=== PATIENT | male | born 1945 | race Asian ===

== ENCOUNTER 2024-09-06 11:41 | Emergency (ER) | payer MEDICAID ==
[~2024-09-06] VITALS: Ht 162.6 cm; Wt 74.8 kg
[2024-09-06] MEDS ORDERED: DIATR MEGLU/DIATRIZOATE SODIUM 30 ML BOTTLE (GASTROGRAPHIN) ONE (13:02)
[2024-09-06 19:54] VITALS: BP 118/64; TEMP 97.8; O2SAT 100
== END 2024-09-06 19:54 ==
LOC: ER 11:45
DX: K94.23 Gastrostomy malfunction (principal); R06.02 Shortness of breath
CPT/HCPCS: 99285; 43762; 74018; 31720; 94799 ×2; Q9963; 94002-TC

== ENCOUNTER 2024-10-24 15:43 | Inpatient (IN) | payer MEDICAID ==
[~2024-10-24] VITALS: Ht 165.1 cm; Wt 47.6 kg
[2024-10-24] MEDS: PANTOPRAZOLE 80 MG in IV NS 0.9% 100 ML IV ONE (16:10)
[2024-10-24] MEDS: CEFEPIME 1 GM in IV D5W 50 ML IV ONE (16:10)
[2024-10-24] MEDS: IV NS 0.9% 1,000 ML BAG IV ONE (16:10)
[2024-10-24 16:23] LABS: BASOPHILS % (AUTO) 0.4 % (0.0-2.0); EOSINOPHILS # (AUTO) 0.8 K/uL (0.0-0.7); HEMATOCRIT 24 % (39-51); HEMOGLOBIN 7.6 g/dL (13.5-17.5); LYMPHOCYTES # (AUTO) 1.6 K/uL (0.8-4.8); LYMPHOCYTES % (AUTO) 15.9 % (20.0-44.0); MEAN CORPUSCULAR HEMOGLOBIN 28 PG (26.0-33.0); MEAN CORPUSCULAR HGB CONC 31 g/dl (31.0-36.0); MEAN CORPUSCULAR VOLUME 89 fL (80-96); MONOCYTES # (AUTO) 0.6 K/uL (0.1-1.30); MONOCYTES % (AUTO) 5.6 % (2.0-12.0); NEUTROPHILS # (AUTO) 7.3 K/uL (1.8-8.9); NEUTROPHILS % (AUTO) 70.1 % (43.0-81.0); PLATELET COUNT (AUTO) 597 K/uL (150-450); RED BLOOD CELL COUNT(AUTO) 2.73 MIL/uL (4.5-6.0); RED CELL DISTRIBUTION WIDTH 20.1 % (11.5-15.0); WHITE BLOOD COUNT (AUTO) 10.4 K/uL (4.3-11.0)
[2024-10-24] MEDS ORDERED: MAGNESIUM HYDROXIDE 30 ML UDC PO PRN (16:30)
[2024-10-24] MEDS ORDERED: Z GUARD REMEDY 4 OZ OINT TP PRN (16:30)
[2024-10-24] MEDS ORDERED: ONDANSETRON HCL/PF 4 MG/2 ML VIAL IVP PRN (16:30)
[2024-10-24] MEDS: PANTOPRAZOLE 80 MG in IV NS 0.9% 500 ML IV ONE (16:30)
[2024-10-24] MEDS ORDERED: MAG HYDROX/AL HYDROX/SIMETH 30 ML UDC PO PRN (16:30)
[2024-10-24 16:47] LABS: LACTIC ACID 1.7 mmol/L (0.4-2.0)
[2024-10-24 16:49] LABS: INR 1.15 (0.91-1.10); PARTIAL THROMBOPLASTIN TIME 46.4 SEC (24.3-34.3); PROTHROMBIN TIME 12.1 SECS (9.2-11.1)
[2024-10-24] MEDS ORDERED: TAMS-12 GT (17:07)
[2024-10-24] MEDS ORDERED: SODI100037 GT (17:07)
[2024-10-24] MEDS ORDERED: CHLO473M5 MM (17:07)
[2024-10-24] MEDS ORDERED: POVI3780 TP (17:07)
[2024-10-24] MEDS ORDERED: FERR220S2 GT (17:07)
[2024-10-24] MEDS ORDERED: MAGN400O6 GT (17:07)
[2024-10-24] MEDS ORDERED: MULT1CAP44 GT (17:07)
[2024-10-24] MEDS ORDERED: COLLAGEN POWDER TP (17:07)
[2024-10-24] MEDS ORDERED: ACET160L44 GT (17:07)
[2024-10-24] MEDS ORDERED: METO-295 GT (17:07)
[2024-10-24] MEDS ORDERED: TRAM50TA2 PO (17:07)
[2024-10-24] MEDS ORDERED: LACT250L14 GT (17:07)
[2024-10-24] MEDS ORDERED: PANT40TA49 GT (17:07)
[2024-10-24] MEDS ORDERED: COLL30OI TP (17:07)
[2024-10-24] MEDS ORDERED: NA P133E RC (17:07)
[2024-10-24] MEDS ORDERED: NORM10004 IV (17:07)
[2024-10-24] MEDS ORDERED: ASCO-352 GT (17:07)
[2024-10-24] MEDS ORDERED: ALBU2.5V38 IH ×2 (17:07)
[2024-10-24] MEDS ORDERED: ONDA4TAB5 GT (17:07)
[2024-10-24] MEDS ORDERED: CRAN3875 GT (17:07)
[2024-10-24] MEDS ORDERED: METO25TA6 GT (17:07)
[2024-10-24] MEDS ORDERED: AMIN30LI66 GT (17:07)
[2024-10-24] MEDS ORDERED: LEVO125T8 GT (17:07)
[2024-10-24] MEDS ORDERED: BISA10SU11 RC (17:07)
[2024-10-24] MEDS ORDERED: ACET-2070 GT (17:07)
[2024-10-24] MEDS ORDERED: SENN-291 GT (17:07)
[2024-10-24] MEDS ORDERED: RIVA10TA GT (17:07)
[2024-10-24] MEDS ORDERED: DOCU100T2 GT (17:07)
[2024-10-24 17:11] LABS: ALANINE AMINOTRANSFERASE 40 U/L (12-78); ALBUMIN 1.7 g/dL (3.4-5.0); ALKALINE PHOSPHATASE 177 U/L (46-116); ASPARTATE AMINOTRANSFERASE 38 U/L (15-37); BILIRUBIN,DIRECT 0.1 mg/dL (0.0-0.2); BILIRUBIN,TOTAL 0.2 mg/dL (0.2-1.0); CALCIUM, SERUM 8.4 mg/dL (8.5-10.1); CARBON DIOXIDE 23 mmol/L (21-32); CHLORIDE 99 mmol/L (98-107); CREATININE 0.4 mg/dL (0.6-1.3); GLUCOSE 96 mg/dL (74-106); POTASSIUM 4.1 mmol/L (3.5-5.1); SODIUM SERUM 131 mmol/L (136-145); TOTAL PROTEIN, SERUM 7.2 g/dL (6.4-8.2); UREA NITROGEN, BLOOD 18 mg/dL (7-18)
[2024-10-24 18:18] LABS: APPEARANCE,URINE CLOUDY (CLEAR); BILIRUBIN,URINE NEGATIVE (NEGATIVE); BLOOD, URINE 1+ Ery/uL (NEGATIVE); COLOR,URINE YELLOW (YELLOW); KETONES,URINE NEGATIVE (NEGATIVE); LEUKOCYTE ESTERASE ,URINE 3+ (NEGATIVE); NITRITE, URINE POSITIVE (NEGATIVE); PH,URINE 8.5 (5.0-8.0); PROTEIN,URINE TRACE mg/dl (NEGATIVE); UGLUCOSE NEGATIVE (NEGATIVE); UROBILINOGEN,URINE 0.2 EU/dL (0.2)
[2024-10-24 18:48] LABS: WBC,URINE 51-80 /HPF (0-3)
[2024-10-24 18:49] LABS: ADD URINE CULTURE YES; BACTERIA,URINE 2+ /HPF (None Seen); TRIPLE PHOSPHATE CRYSTAL,UR Many /HPF (None Seen); URINE AMORPHOUS PHOSPHATES Moderate /HPF (None Seen)
[2024-10-24 18:54] LABS: ANISOCYTOSIS 1+; EOSINOPHILS % (MANUAL) 9 % (0-4); LYMPHOCYTES % (MANUAL) 12 % (16-48); MONOCYTES % (MANUAL) 5 % (0-11.0); NEUTROPHILS % (MANUAL) 74 (42-76); PLATELET ESTIMATE INCREASED
[2024-10-24] MEDS: SOD FERRIC GLUC 125 MG in IV NS 0.9% 100 ML IV SCH (20:10)
[2024-10-24 22:00] VITALS: BP 105/74; TEMP 99; O2SAT 98
[2024-10-24 23:03] LABS: HEMOGLOBIN 7.9 g/dL (13.5-17.5)
[2024-10-25] MEDS: IV NS 0.9% 1,000 ML IV PRN (01:08)
[2024-10-25 06:26] LABS: BASOPHILS % (AUTO) 0.2 % (0.0-2.0); EOSINOPHILS # (AUTO) 0.5 K/uL (0.0-0.7); EOSINOPHILS % (AUTO) 5.5 % (0.0-6.0); HEMATOCRIT 23 % (39-51); HEMOGLOBIN 7.2 g/dL (13.5-17.5); LYMPHOCYTES % (AUTO) 10.3 % (20.0-44.0); MEAN CORPUSCULAR HEMOGLOBIN 28 PG (26.0-33.0); MEAN CORPUSCULAR HGB CONC 31 g/dl (31.0-36.0); MEAN CORPUSCULAR VOLUME 91 fL (80-96); MONOCYTES # (AUTO) 0.5 K/uL (0.1-1.30); MONOCYTES % (AUTO) 5.2 % (2.0-12.0); NEUTROPHILS # (AUTO) 7.3 K/uL (1.8-8.9); NEUTROPHILS % (AUTO) 78.8 % (43.0-81.0); PLATELET COUNT (AUTO) 564 K/uL (150-450); RED BLOOD CELL COUNT(AUTO) 2.53 MIL/uL (4.5-6.0); RED CELL DISTRIBUTION WIDTH 20.1 % (11.5-15.0); WHITE BLOOD COUNT (AUTO) 9.3 K/uL (4.3-11.0)
[2024-10-25 07:16] LABS: ALBUMIN 1.7 g/dL (3.4-5.0); BILIRUBIN,TOTAL 0.4 mg/dL (0.2-1.0); CALCIUM, SERUM 8.4 mg/dL (8.5-10.1); CREATININE 0.5 mg/dL (0.6-1.3); MAGNESIUM 1.9 mg/dL (1.8-2.4); PHOSPHORUS 3.7 mg/dL (2.5-4.9); POTASSIUM 3.6 mmol/L (3.5-5.1)
[2024-10-25 08:00] VITALS: BP 113/62; TEMP 98.2; O2SAT 99
[2024-10-25] MEDS: PANTOPRAZOLE 40 MG VIAL IV SCH (08:18)
[2024-10-25] MEDS: DAKINS QUARTER STRENGTH (0.125%) 480 ML BOTTLE TOP SCH (09:48)
[2024-10-25] MEDS: THERAHONEY GEL 1.5 OZ TUBE TP SCH (09:48)
[2024-10-25 12:00] VITALS: BP 103/57; TEMP 98.4; O2SAT 99
[2024-10-25] MEDS ORDERED: JEVITY 1.5 CAL LIQUID 1,000 ML BOTTLE GT PRN ×2 (15:00)
[2024-10-25] MEDS ORDERED: ALBUTEROL FS 2.5 MG/3 ML VIAL.NEB NEB PRN (15:00)
[2024-10-25] MEDS ORDERED: METOCLOPRAMIDE HCL 10 MG TABLET GT PRN (15:00)
[2024-10-25 16:00] VITALS: BP 110/76; TEMP 97.5; O2SAT 100
[2024-10-25] MEDS: CEFEPIME 1 GM in IV D5W 50 ML IV SCH (16:14)
[2024-10-25] MEDS: OSMOLITE 1.2 CAL 1,000 ML LIQUID GT PRN (17:25)
[2024-10-25] MEDS: DOCUSATE SODIUM LIQ 100 MG/10 ML UDC GT SCH (17:25)
[2024-10-25] MEDS: SENNOSIDES 8.6 MG TABLET GT SCH (17:25)
[2024-10-25] MEDS: ALBUTEROL FS 2.5 MG/3 ML VIAL.NEB NEB SCH (19:40)
[2024-10-25 20:00] VITALS: BP 112/68; TEMP 98.8; O2SAT 100
[2024-10-25] MEDS: CHLORHEXIDINE GLUCONATE 15 ML UDC MM SCH (21:49)
[2024-10-25] MEDS: METOPROLOL TARTRATE 25 MG TABLET GT SCH (21:50)
[2024-10-26] VITALS (14 sets, daily range): BP systolic 94–131; BP diastolic 54–80; TEMP 97.3–99.3; O2SAT 100
[2024-10-26 07:32] LABS: CALCIUM, SERUM 8.1 mg/dL (8.5-10.1); CREATININE 0.5 mg/dL (0.6-1.3); MAGNESIUM 1.8 mg/dL (1.8-2.4); PHOSPHORUS 3.7 mg/dL (2.5-4.9); POTASSIUM 3.3 mmol/L (3.5-5.1)
[2024-10-26 07:52] LABS: THYROID STIMULATING HORMONE 12.46 uIU/mL (0.358-3.74); URIC ACID 5.6 mg/dL (2.6-7.2)
[2024-10-26 08:00] LABS: BASOPHILS % (AUTO) 0.3 % (0.0-2.0); EOSINOPHILS # (AUTO) 0.6 K/uL (0.0-0.7); EOSINOPHILS % (AUTO) 5.9 % (0.0-6.0); HEMATOCRIT 21 % (39-51); LYMPHOCYTES # (AUTO) 1.2 K/uL (0.8-4.8); LYMPHOCYTES % (AUTO) 12.9 % (20.0-44.0); MEAN CORPUSCULAR HEMOGLOBIN 29 PG (26.0-33.0); MEAN CORPUSCULAR HGB CONC 32 g/dl (31.0-36.0); MEAN CORPUSCULAR VOLUME 90 fL (80-96); MONOCYTES # (AUTO) 0.7 K/uL (0.1-1.30); MONOCYTES % (AUTO) 7.5 % (2.0-12.0); NEUTROPHILS # (AUTO) 6.9 K/uL (1.8-8.9); NEUTROPHILS % (AUTO) 73.4 % (43.0-81.0); PLATELET COUNT (AUTO) 556 K/uL (150-450); RED BLOOD CELL COUNT(AUTO) 2.35 MIL/uL (4.5-6.0); RED CELL DISTRIBUTION WIDTH 20.2 % (11.5-15.0); WHITE BLOOD COUNT (AUTO) 9.4 K/uL (4.3-11.0)
[2024-10-26 08:03] LABS: HEMOGLOBIN 6.8 g/dL (13.5-17.5)
[2024-10-26] MEDS: TAMSULOSIN 0.4 MG CAP.SR.24H GT SCH (08:19)
[2024-10-26] MEDS: LEVOTHYROXINE SODIUM 125 MCG TABLET GT SCH (08:19)
[2024-10-26] MEDS: MULTIVIT W/MINERALS 1 TAB TABLET GT SCH (08:19)
[2024-10-26] MEDS: ASCORBIC ACID 500 MG TABLET GT SCH (08:19)
[2024-10-26] MEDS: DOCUSATE SODIUM 100 MG CAPSULE PO SCH (08:19)
[2024-10-26] MEDS: FERROUS SULFATE - FOR SA ONLY 330 MG/7.5 ML UDC GT SCH (09:04)
[2024-10-26] MEDS: POTASSIUM CHLORIDE 20 MEQ POWDER PACKET GT SCH (09:42)
[2024-10-26 11:33] LABS: EOSINOPHILS % (MANUAL) 7 % (0-4); LYMPHOCYTES % (MANUAL) 11 % (16-48); MONOCYTES % (MANUAL) 8 % (0-11.0); NEUTROPHILS % (MANUAL) 74 (42-76)
[2024-10-26 11:34] LABS: PLATELET ESTIMATE INCREASED
[2024-10-26] MEDS: ACETAMINOPHEN 325 MG TABLET PO PRN (18:23)
[2024-10-26] MEDS: PANTOPRAZOLE 40 MG/PACK PACK GT SCH (20:56)
[2024-10-27] VITALS (7 sets, daily range): BP systolic 104–126; BP diastolic 52–82; TEMP 97.3–99; O2SAT 97–100
[2024-10-27 07:38] LABS: BASOPHILS % (AUTO) 0.4 % (0.0-2.0); EOSINOPHILS # (AUTO) 0.7 K/uL (0.0-0.7); EOSINOPHILS % (AUTO) 8.5 % (0.0-6.0); HEMATOCRIT 26 % (39-51); HEMOGLOBIN 8.3 g/dL (13.5-17.5); LYMPHOCYTES # (AUTO) 1.4 K/uL (0.8-4.8); LYMPHOCYTES % (AUTO) 17.6 % (20.0-44.0); MEAN CORPUSCULAR HEMOGLOBIN 28 PG (26.0-33.0); MEAN CORPUSCULAR HGB CONC 32 g/dl (31.0-36.0); MEAN CORPUSCULAR VOLUME 89 fL (80-96); MONOCYTES # (AUTO) 0.6 K/uL (0.1-1.30); MONOCYTES % (AUTO) 7.6 % (2.0-12.0); NEUTROPHILS # (AUTO) 5.3 K/uL (1.8-8.9); NEUTROPHILS % (AUTO) 65.9 % (43.0-81.0); PLATELET COUNT (AUTO) 489 K/uL (150-450); RED BLOOD CELL COUNT(AUTO) 2.93 MIL/uL (4.5-6.0); RED CELL DISTRIBUTION WIDTH 18.8 % (11.5-15.0); WHITE BLOOD COUNT (AUTO) 8.1 K/uL (4.3-11.0)
[2024-10-27 07:46] LABS: CALCIUM, SERUM 7.9 mg/dL (8.5-10.1); CREATININE 0.5 mg/dL (0.6-1.3); POTASSIUM 3.6 mmol/L (3.5-5.1)
[2024-10-27 07:47] LABS: MAGNESIUM 1.8 mg/dL (1.8-2.4); PHOSPHORUS 3.3 mg/dL (2.5-4.9)
[2024-10-27 08:16] LABS: OCCULT BLOOD STOOL NEGATIVE (NEGATIVE)
[2024-10-27] MEDS: CEFEPIME 2 GM in IV D5W 100 ML IV SCH (09:11)
[2024-10-28 00:09] VITALS: TEMP 99
[2024-10-28 04:00] VITALS: BP 117/58; TEMP 100.2
[2024-10-28 07:05] LABS: CREATININE 0.4 mg/dL (0.6-1.3); POTASSIUM 3.7 mmol/L (3.5-5.1)
[2024-10-28 07:15] LABS: BASOPHILS % (AUTO) 0.2 % (0.0-2.0); EOSINOPHILS # (AUTO) 0.7 K/uL (0.0-0.7); EOSINOPHILS % (AUTO) 9.4 % (0.0-6.0); HEMATOCRIT 26 % (39-51); HEMOGLOBIN 8.2 g/dL (13.5-17.5); LYMPHOCYTES # (AUTO) 1.2 K/uL (0.8-4.8); LYMPHOCYTES % (AUTO) 15.4 % (20.0-44.0); MEAN CORPUSCULAR HEMOGLOBIN 29 PG (26.0-33.0); MEAN CORPUSCULAR HGB CONC 32 g/dl (31.0-36.0); MEAN CORPUSCULAR VOLUME 90 fL (80-96); MONOCYTES # (AUTO) 0.6 K/uL (0.1-1.30); MONOCYTES % (AUTO) 8.4 % (2.0-12.0); NEUTROPHILS % (AUTO) 66.6 % (43.0-81.0); PLATELET COUNT (AUTO) 499 K/uL (150-450); RED BLOOD CELL COUNT(AUTO) 2.85 MIL/uL (4.5-6.0); RED CELL DISTRIBUTION WIDTH 19.1 % (11.5-15.0); WHITE BLOOD COUNT (AUTO) 7.6 K/uL (4.3-11.0)
[2024-10-28 08:05] VITALS: BP 114/67; TEMP 98.2; O2SAT 100
[2024-10-28 12:00] VITALS: BP 116/64; TEMP 98.6; O2SAT 100
[2024-10-28 16:05] VITALS: BP 118/66; TEMP 98.1; O2SAT 98
[2024-10-28 20:00] VITALS: BP 118/67; TEMP 99.3; O2SAT 98
[2024-10-28] MEDS: AMOX/CLAVULANATE 875 MG TABLET PO SCH (20:52)
[2024-10-29] VITALS: BP 121/61; TEMP 99; O2SAT 98
[2024-10-29 04:00] VITALS: BP 114/55; TEMP 99.3; O2SAT 100
[2024-10-29 08:00] VITALS: BP 109/60; TEMP 98.2; O2SAT 98
[2024-10-29 08:06] LABS: BASOPHILS % (AUTO) 0.4 % (0.0-2.0); EOSINOPHILS # (AUTO) 0.8 K/uL (0.0-0.7); EOSINOPHILS % (AUTO) 10.4 % (0.0-6.0); HEMATOCRIT 25 % (39-51); HEMOGLOBIN 7.9 g/dL (13.5-17.5); LYMPHOCYTES # (AUTO) 1.2 K/uL (0.8-4.8); LYMPHOCYTES % (AUTO) 15.1 % (20.0-44.0); MEAN CORPUSCULAR HEMOGLOBIN 29 PG (26.0-33.0); MEAN CORPUSCULAR HGB CONC 32 g/dl (31.0-36.0); MEAN CORPUSCULAR VOLUME 92 fL (80-96); MONOCYTES # (AUTO) 0.6 K/uL (0.1-1.30); MONOCYTES % (AUTO) 7.3 % (2.0-12.0); NEUTROPHILS # (AUTO) 5.1 K/uL (1.8-8.9); NEUTROPHILS % (AUTO) 66.8 % (43.0-81.0); PLATELET COUNT (AUTO) 468 K/uL (150-450); RED BLOOD CELL COUNT(AUTO) 2.74 MIL/uL (4.5-6.0); RED CELL DISTRIBUTION WIDTH 19.1 % (11.5-15.0); WHITE BLOOD COUNT (AUTO) 7.7 K/uL (4.3-11.0)
[2024-10-29 08:26] LABS: CALCIUM, SERUM 7.6 mg/dL (8.5-10.1); CREATININE 0.4 mg/dL (0.6-1.3); POTASSIUM 3.8 mmol/L (3.5-5.1)
[2024-10-29] MEDS: ARGININE/GLUTAMINE/CALCIUM BMB 1 EACH POWD.PACK GT SCH (10:45)
[2024-10-29] MEDS: PROSOURCE / PROSTAT (PYXIS) 30 ML UDC GT SCH (10:45)
[2024-10-29] MEDS ORDERED: AMOX1TAB16 PO (11:09)
[2024-10-29 12:00] VITALS: BP 120/59; TEMP 99; O2SAT 100
== END 2024-10-29 15:05 | DRG 130 ==
LOC: ER 15:55 → TELE1 21:14
PROVIDERS: ADMIT Nurse Practitioner Acute Care; ATTEND Student in an Organized Health Care Education/Training Program
PROC: 5A1955Z Respiratory Ventilation, Greater than 96 Consecutive Hours (ICD-10-PCS; principal; 2024-10-24)
PROC: 30233N1 Transfusion of Nonautologous Red Blood Cells into Peripheral Vein, Percutaneous Approach (ICD-10-PCS; 2024-10-26)
DX: J95.851 Ventilator associated pneumonia (principal); G93.49 Other encephalopathy; G82.50 Quadriplegia, unspecified; E43 Unspecified severe protein-calorie malnutrition; L89.130 Pressure ulcer of right lower back, unstageable; J15.9 Unspecified bacterial pneumonia; L89.150 Pressure ulcer of sacral region, unstageable; D68.59 Other primary thrombophilia; L89.013 Pressure ulcer of right elbow, stage 3; E86.0 Dehydration; L89.614 Pressure ulcer of right heel, stage 4; L89.894 Pressure ulcer of other site, stage 4; K92.2 Gastrointestinal hemorrhage, unspecified; E87.1 Hypo-osmolality and hyponatremia; Z99.11 Dependence on respirator [ventilator] status; J96.10 Chronic respiratory failure, unspecified whether with hypoxia or hypercapnia; D64.9 Anemia, unspecified; B96.89 Other specified bacterial agents as the cause of diseases classified elsewhere; Y84.9 Medical procedure, unspecified as the cause of abnormal reaction of the patient, or of later complication, without mention of misadventure at the time of the procedure; Y92.9 Unspecified place or not applicable; Z74.01 Bed confinement status; T81.30XA Disruption of wound, unspecified, initial encounter; Y84.8 Other medical procedures as the cause of abnormal reaction of the patient, or of later complication, without mention of misadventure at the time of the procedure; Y92.129 Unspecified place in nursing home as the place of occurrence of the external cause; Z86.718 Personal history of other venous thrombosis and embolism; Z86.73 Personal history of transient ischemic attack (TIA), and cerebral infarction without residual deficits; Z93.1 Gastrostomy status; Z93.0 Tracheostomy status; R13.10 Dysphagia, unspecified; Z79.01 Long term (current) use of anticoagulants; Z79.899 Other long term (current) drug therapy; Z79.890 Hormone replacement therapy; Z79.51 Long term (current) use of inhaled steroids; E86.1 Hypovolemia; E88.09 Other disorders of plasma-protein metabolism, not elsewhere classified; R23.8 Other skin changes; L89.210 Pressure ulcer of right hip, unstageable; N39.0 Urinary tract infection, site not specified; L89.890 Pressure ulcer of other site, unstageable; E86.9 Volume depletion, unspecified
CPT/HCPCS: 31720; 36415; 71045-TC; 80048-TC; 80053-TC; 80076-TC; 81001; 82272-TC; 83605-TC; 83735-TC; 84100-TC; 84443-TC; 84484-TC; 84550-TC; 85025-TC; 85027-TC; 85730-TC; 86850-TC; 87040-TC; 87081-TC; 87086-TC; 87186-TC; 94003-TC; 94760-TC; 94762-TC; 94799-TC; A4223; A4623; A6213; A6253; A6403; G0378; J0692; J2470; J2916; J7030; J7040; J7050; J7060; P9016

== ENCOUNTER 2024-11-27 12:54 | Inpatient (IN) | payer MEDICAID ==
[2024-11-27] VITALS (24 sets, daily range): BP systolic 75–133; BP diastolic 48–69; TEMP 97.5–98.9; O2SAT 98–100
[~2024-11-27] VITALS: Ht 170.2 cm; Wt 45.4 kg
[~2024-11-27 12:54] MED LIST: ACET-2070 GT; ACET160L44 GT; ALBU2.5V38 IH; AMIN30LI66 GT; AMOX1TAB16 PO; ASCO-352 GT; BISA10SU11 RC; CHLO473M5 MM; COLL30OI TP; COLLAGEN POWDER TP; CRAN3875 GT; DOCU100T2 GT; FERR220S2 GT; LACT250L14 GT; LEVO125T8 GT; MAGN400O6 GT; METO-295 GT; METO25TA6 GT; MULT1CAP44 GT; NA P133E RC; ONDA4TAB5 GT; PANT40TA49 GT; POVI3780 TP; RIVA10TA GT; SENN-291 GT; SODI100037 GT; TAMS-12 GT; TRAM50TA2 PO
[2024-11-27] MEDS ORDERED: ACETAMINOPHEN 650 MG/SUPP.RECT RC ONE (13:13)
[2024-11-27] MEDS: IV NS 0.9% 1,000 ML BAG IV ONE ×2 (13:30→14:56)
[2024-11-27] MEDS: ACETAMINOPHEN 650 MG/SUPP.RECT RC ONE (13:30)
[2024-11-27] MEDS: PIPERACILLIN /TAZOBACTAM 3.375 G in IV D5W 50 ML IV ONE (13:40)
[2024-11-27 13:50] LABS: RED BLOOD CELL COUNT(AUTO) 2.05 MIL/uL (4.5-6.0)
[2024-11-27 13:54] LABS: PLATELET COUNT (AUTO) 302 K/uL (150-450); RED CELL DISTRIBUTION WIDTH 18.8 % (11.5-15.0); WHITE BLOOD COUNT (AUTO) 13.3 K/uL (4.3-11.0)
[2024-11-27] MEDS ORDERED: LEVO75TA7 GT (13:56)
[2024-11-27] MEDS ORDERED: [UNRECOGNIZED DRUG - OTHER] GT (13:56)
[2024-11-27] MEDS ORDERED: UREA GT (13:56)
[2024-11-27 13:58] LABS: APPEARANCE,URINE CLEAR (CLEAR)
[2024-11-27 13:59] LABS: BLOOD, URINE LARGE Ery/uL (NEGATIVE); LEUKOCYTE ESTERASE ,URINE LARGE (NEGATIVE); NITRITE, URINE POSITIVE (NEGATIVE); UGLUCOSE NEGATIVE (NEGATIVE)
[2024-11-27 14:02] LABS: INR 1.45 (0.91-1.10)
[2024-11-27 14:04] LABS: ADD URINE CULTURE YES; SQUAMOUS EPITHELIAL CELL,UR Moderate /HPF (None Seen)
[2024-11-27 14:07] LABS: LACTIC ACID 2.1 mmol/L (0.4-2.0)
[2024-11-27] MEDS: VANCOMYCIN 1 GM in IV D5W 250 ML IV ONE (14:10)
[2024-11-27 14:13] LABS: ASPARTATE AMINOTRANSFERASE 50 U/L (15-37); CREATININE 0.6 mg/dL (0.6-1.3); TOTAL PROTEIN, SERUM 4.6 g/dL (6.4-8.2); UREA NITROGEN, BLOOD 32 mg/dL (7-18)
[2024-11-27 14:34] LABS: CALCIUM, SERUM 6.0 mg/dL (8.5-10.1); SODIUM SERUM 160 mmol/L (136-145)
[2024-11-27] MEDS ORDERED: POTASSIUM CL. PREMIX PERIPHER. 200 ML ONE (14:59)
[2024-11-27 15:08] LABS: LYMPHOCYTES % (MANUAL) 4 % (16-48); MONOCYTES % (MANUAL) 2 % (0-11.0); NEUTROPHILS % (MANUAL) 94 (42-76)
[2024-11-27 15:09] LABS: PLATELET ESTIMATE ADEQUATE
[2024-11-27] MEDS: POTASSIUM CL. PREMIX PERIPHER. 50 ML IV SCH (15:10)
[2024-11-27] MEDS ORDERED: ONDANSETRON HCL/PF 4 MG/2 ML VIAL IVP PRN (16:30)
[2024-11-27] MEDS ORDERED: NA PHOS,M-B/NA PHOS,DI-BA 1 EA ENEMA RC PRN (16:30)
[2024-11-27] MEDS ORDERED: BISACODYL SUPP (10 MG) 10 MG/SUPP.RECT SUPP.RECT RC PRN (16:30)
[2024-11-27] MEDS ORDERED: MAGNESIUM HYDROXIDE 30 ML UDC PO PRN (16:30)
[2024-11-27] MEDS ORDERED: METOCLOPRAMIDE HCL 10 MG TABLET GT PRN (16:30)
[2024-11-27] MEDS ORDERED: MAGNESIUM HYDROXIDE 30 ML UDC GT PRN (16:30)
[2024-11-27] MEDS ORDERED: MAG HYDROX/AL HYDROX/SIMETH 30 ML UDC GT PRN (16:30)
[2024-11-27] MEDS ORDERED: NOREPINEPHRINE 8MG/250ML RTU 250 ML IV ONE (16:55)
[2024-11-27] MEDS ORDERED: DOSING PER PHARMACY-VANCOMYCIN IV XX PRN (17:00)
[2024-11-27] MEDS: NOREPINEPHRINE 8 MG in IV D5W 242 ML IV PRN (17:00)
[2024-11-27] MEDS ORDERED: DOSING PER PHARMACY-CEFEPIME IVPB XX PRN (17:00)
[2024-11-27] MEDS: IV 1/2NS 1000 ML 1,000 ML IV PRN (17:22)
[2024-11-27] MEDS ORDERED: NOREPINEPHRINE 8 MG in IV D5W 242 ML IV PRN (18:00)
[2024-11-27] MEDS: CEFEPIME 2 GM in IV D5W 100 ML IV SCH (18:55)
[2024-11-27] MEDS: DOCUSATE SODIUM LIQ 100 MG/10 ML UDC GT SCH (18:55)
[2024-11-27] MEDS: SENNOSIDES/DOCUSATE SODIUM 1 TAB TABLET GT SCH (18:55)
[2024-11-27] MEDS: ALBUTEROL FS 2.5 MG/3 ML VIAL.NEB IH SCH (19:55)
[2024-11-27 20:30] LABS: PLATELET COUNT (AUTO) 425 K/uL (150-450); RED BLOOD CELL COUNT(AUTO) 3.22 MIL/uL (4.5-6.0); RED CELL DISTRIBUTION WIDTH 20.7 % (11.5-15.0); WHITE BLOOD COUNT (AUTO) 21.3 K/uL (4.3-11.0)
[2024-11-27 20:43] LABS: CALCIUM, SERUM 7.6 mg/dL (8.5-10.1); CREATININE 0.7 mg/dL (0.6-1.3); SODIUM SERUM 153.0 mmol/L (136-145); UREA NITROGEN, BLOOD 37.0 mg/dL (7-18)
[2024-11-27] MEDS: PANTOPRAZOLE 40 MG/PACK PACK GT SCH (20:52)
[2024-11-27] MEDS: CHLORHEXIDINE GLUCONATE 15 ML UDC MM SCH (20:53)
[2024-11-28] VITALS (45 sets, daily range): BP systolic 81–127; BP diastolic 49–77; TEMP 98.3–101.3; O2SAT 99–100
[2024-11-28] MEDS: VANCOMYCIN 750 MG in IV D5W 250 ML IV SCH (02:55)
[2024-11-28 03:13] LABS: PLATELET COUNT (AUTO) 459 K/uL (150-450); RED BLOOD CELL COUNT(AUTO) 3.33 MIL/uL (4.5-6.0); RED CELL DISTRIBUTION WIDTH 20.5 % (11.5-15.0); WHITE BLOOD COUNT (AUTO) 19.0 K/uL (4.3-11.0)
[2024-11-28 04:15] LABS: CALCIUM, SERUM 8.3 mg/dL (8.5-10.1); CREATININE 0.8 mg/dL (0.6-1.3); PHOSPHORUS 3.9 mg/dL (2.5-4.9); SODIUM SERUM 153.0 mmol/L (136-145); UREA NITROGEN, BLOOD 34.0 mg/dL (7-18)
[2024-11-28] MEDS: LEVOTHYROXINE SODIUM 75 MCG TABLET GT SCH (08:02)
[2024-11-28] MEDS: Z GUARD REMEDY 4 OZ OINT TP PRN (08:02)
[2024-11-28] MEDS: THERAHONEY GEL 1.5 OZ TUBE TP SCH ×2 (08:02→09:59)
[2024-11-28] MEDS: TAMSULOSIN 0.4 MG CAP.SR.24H GT SCH (08:04)
[2024-11-28] MEDS: DAKINS QUARTER STRENGTH (0.125%) 480 ML BOTTLE TOP SCH (08:05)
[2024-11-28] MEDS ORDERED: JEVITY 1.2 CAL 1,000 ML BOTTLE GT PRN (08:30)
[2024-11-28] MEDS: ACETAMINOPHEN 325 MG TABLET PO PRN (10:02)
[2024-11-28] MEDS: TRAMADOL HCL 50 MG TABLET GT PRN (10:02)
[2024-11-28] MEDS: ARGININE/GLUTAMINE/CALCIUM BMB 1 EACH POWD.PACK GT SCH (13:14)
[2024-11-28] MEDS: VITAL AF 1.2 1,000 ML BOTTLE GT SCH (16:50)
[2024-11-28] MEDS ORDERED: PHENYLEPHRINE 50 MG in IV NS 0.9% 245 ML IV PRN (17:30)
[2024-11-28 17:46] LABS: URINE SODIUM, RANDOM 24 mmol/l (40-220)
[2024-11-28 21:43] LABS: OSMOLALITY,URINE 544 mOS/kg (340-1090)
[2024-11-29] VITALS (18 sets, daily range): BP systolic 88–129; BP diastolic 51–79; TEMP 97.7–99.3; O2SAT 99–100
[2024-11-29 04:26] LABS: PLATELET COUNT (AUTO) 379 K/uL (150-450); RED BLOOD CELL COUNT(AUTO) 2.83 MIL/uL (4.5-6.0); RED CELL DISTRIBUTION WIDTH 20.3 % (11.5-15.0); WHITE BLOOD COUNT (AUTO) 14.0 K/uL (4.3-11.0)
[2024-11-29 04:41] LABS: CALCIUM, SERUM 7.7 mg/dL (8.5-10.1); CREATININE 0.7 mg/dL (0.6-1.3); PHOSPHORUS 2.9 mg/dL (2.5-4.9); SODIUM SERUM 146.0 mmol/L (136-145); UREA NITROGEN, BLOOD 30.0 mg/dL (7-18)
[2024-11-29 06:55] LABS: CALCIUM, SERUM 7.9 mg/dL (8.5-10.1); CREATININE 0.7 mg/dL (0.6-1.3); SODIUM SERUM 146.0 mmol/L (136-145); UREA NITROGEN, BLOOD 33.0 mg/dL (7-18)
[2024-11-29] MEDS: POTASSIUM CL. PREMIX PERIPHER. 50 ML IV SCH (08:18)
[2024-11-30] VITALS (9 sets, daily range): BP systolic 105–137; BP diastolic 61–80; TEMP 97.7–100; O2SAT 95–100
[2024-11-30 07:57] LABS: CALCIUM, SERUM 8.0 mg/dL (8.5-10.1); CREATININE 0.5 mg/dL (0.6-1.3); SODIUM SERUM 142.0 mmol/L (136-145); UREA NITROGEN, BLOOD 27.0 mg/dL (7-18)
[2024-11-30] MEDS: POTASSIUM CHLORIDE 20 MEQ POWDER PACKET GT SCH (11:58)
[2024-11-30] MEDS: VANCOMYCIN 500 MG in IV D5W 100ml IV SCH (14:06)
[2024-11-30] MEDS ORDERED: MEROPENEM 500 MG in IV NS 0.9% 50 ML IV SCH (18:00)
[2024-11-30] MEDS: MEROPENEM 1 G in IV NS 0.9% 100 ML IV SCH (20:02)
[2024-12-01] VITALS (21 sets, daily range): BP systolic 72–144; BP diastolic 48–84; TEMP 97.8–100.4; O2SAT 93–100
[2024-12-01] MEDS: VANCOMYCIN 500 MG in IV D5W 100 ML IV SCH ×2 (01:38→14:27)
[2024-12-01] MEDS ORDERED: VANCOMYCIN 500 MG in IV D5W 100 ML IV SCH (06:13)
[2024-12-01 07:25] LABS: PLATELET COUNT (AUTO) 409 K/uL (150-450); RED BLOOD CELL COUNT(AUTO) 2.90 MIL/uL (4.5-6.0); RED CELL DISTRIBUTION WIDTH 19.3 % (11.5-15.0); WHITE BLOOD COUNT (AUTO) 10.6 K/uL (4.3-11.0)
[2024-12-01 07:45] LABS: CALCIUM, SERUM 7.9 mg/dL (8.5-10.1); CREATININE 0.5 mg/dL (0.6-1.3); SODIUM SERUM 142.0 mmol/L (136-145); UREA NITROGEN, BLOOD 23.0 mg/dL (7-18)
[2024-12-01 08:07] LABS: PHOSPHORUS 2.5 mg/dL (2.5-4.9)
[2024-12-01] MEDS: POTASSIUM CL. PREMIX PERIPHER. 50 ML IV SCH (09:40)
[2024-12-01] MEDS: IV NS 0.9% 500 ML IV STA ×2 (20:52→23:33)
[2024-12-01] MEDS: PHENYLEPHRINE 50 MG in IV NS 0.9% 245 ML IV PRN (21:10)
[2024-12-01] MEDS: AMIODARONE 150 MG/3 ML VIAL IV ONE (21:15)
[2024-12-01] MEDS: PHENYLEPHRINE 10 MG/ML VIAL ONE (21:16)
[2024-12-01] MEDS: AMIODARONE 150 MG in IV D5W 100 ML IV ONE (21:18)
[2024-12-01] MEDS: AMIODARONE 450 MG in IV D5W 241 ML IV PRN (21:39)
[2024-12-01] MEDS: PROPOFOL 100 ML IV PRN (21:42)
[2024-12-02] VITALS (95 sets, daily range): BP systolic 74–125; BP diastolic 53–87; TEMP 97.4–97.7; O2SAT 79–100
[2024-12-02] MEDS: AMIODARONE 150 MG/3 ML VIAL IV ONE (03:05)
[2024-12-02 05:08] LABS: PLATELET COUNT (AUTO) 467 K/uL (150-450); RED BLOOD CELL COUNT(AUTO) 3.00 MIL/uL (4.5-6.0); RED CELL DISTRIBUTION WIDTH 18.7 % (11.5-15.0); WHITE BLOOD COUNT (AUTO) 11.8 K/uL (4.3-11.0)
[2024-12-02 05:31] LABS: CALCIUM, SERUM 7.8 mg/dL (8.5-10.1); CREATININE 0.5 mg/dL (0.6-1.3); SODIUM SERUM 140.0 mmol/L (136-145); UREA NITROGEN, BLOOD 21.0 mg/dL (7-18)
[2024-12-02] MEDS: PHENYLEPHRINE 10 MG/ML VIAL ONE (06:00)
[2024-12-02] MEDS: CHLORHEXIDINE GLUCONATE 15 ML UDC MM SCH (08:17)
[2024-12-02] MEDS: POTASSIUM CHLORIDE 20 MEQ POWDER PACKET GT SCH (09:57)
[2024-12-02] MEDS: HYDROCORTISONE SOD SUCCINATE 100 MG/2 ML VIAL IV SCH (10:48)
[2024-12-02] MEDS: FENTANYL CITRAT IV 2,500 MCG in IV NS 0.9% 200 ML IV PRN (11:36)
[2024-12-02] MEDS: DIGOXIN INJ 0.5 MG/2 ML AMPUL IV SCH (12:26)
[2024-12-03] VITALS (96 sets, daily range): BP systolic 77–135; BP diastolic 51–89; TEMP 97.7–98.2; O2SAT 98–100
[2024-12-03 04:39] LABS: PLATELET COUNT (AUTO) 627 K/uL (150-450); RED BLOOD CELL COUNT(AUTO) 3.42 MIL/uL (4.5-6.0); RED CELL DISTRIBUTION WIDTH 18.6 % (11.5-15.0); WHITE BLOOD COUNT (AUTO) 12.9 K/uL (4.3-11.0)
[2024-12-03 05:22] LABS: CALCIUM, SERUM 8.1 mg/dL (8.5-10.1); CREATININE 0.5 mg/dL (0.6-1.3); SODIUM SERUM 142.0 mmol/L (136-145); UREA NITROGEN, BLOOD 19.0 mg/dL (7-18)
[2024-12-03] MEDS: POTASSIUM CHLORIDE 20 MEQ POWDER PACKET NG SCH (08:08)
[2024-12-03] MEDS: POTASSIUM CHLORIDE 20 MEQ POWDER PACKET GT SCH (09:30)
[2024-12-03] MEDS: DOCUSATE SODIUM LIQ 100 MG/10 ML UDC GT SCH (21:19)
[2024-12-03] MEDS: ARGININE/GLUTAMINE/CALCIUM BMB 1 EACH POWD.PACK GT SCH (21:19)
[2024-12-04] VITALS (57 sets, daily range): BP systolic 91–127; BP diastolic 54–81; TEMP 97–98; O2SAT 99–100
[2024-12-04 04:36] LABS: CALCIUM, SERUM 7.9 mg/dL (8.5-10.1); CREATININE 0.3 mg/dL (0.6-1.3); SODIUM SERUM 138.0 mmol/L (136-145); UREA NITROGEN, BLOOD 23.0 mg/dL (7-18)
[2024-12-04] MEDS: LEVOTHYROXINE SODIUM 75 MCG TABLET GT SCH (08:34)
[2024-12-04] MEDS: POTASSIUM CHLORIDE 20 MEQ POWDER PACKET GT ONE (08:54)
[2024-12-05] VITALS (19 sets, daily range): BP systolic 98–130; BP diastolic 58–78; TEMP 97.3–97.9; O2SAT 98–100
[2024-12-05 04:47] LABS: CALCIUM, SERUM 7.5 mg/dL (8.5-10.1); CREATININE 0.4 mg/dL (0.6-1.3); SODIUM SERUM 144 mmol/L (136-145); UREA NITROGEN, BLOOD 30 mg/dL (7-18)
[2024-12-05] MEDS: POTASSIUM CHLORIDE 20 MEQ POWDER PACKET GT ONE (09:15)
[2024-12-05] MEDS ORDERED: DOSING PER PHARMACY-TOBRA INHALATION 1 EA XX PRN (21:30)
[2024-12-06] VITALS: BP 119/72; TEMP 97.5; O2SAT 100
[2024-12-06 04:00] VITALS: BP 123/80; TEMP 97.7; O2SAT 100
[2024-12-06 07:27] LABS: CALCIUM, SERUM 8.1 mg/dL (8.5-10.1); CREATININE 0.5 mg/dL (0.6-1.3); SODIUM SERUM 147.0 mmol/L (136-145); UREA NITROGEN, BLOOD 35.0 mg/dL (7-18)
[2024-12-06] MEDS ORDERED: TOBRAMYCIN 80 MG/2 ML VIAL INH SCH ×2 (07:35→08:14)
[2024-12-06 08:00] VITALS: BP 128/75; TEMP 97.7; O2SAT 100
[2024-12-06] MEDS: SULFAMETH/TRIMETH 800/160 MG 1 UDTAB TABLET PO SCH (08:11)
[2024-12-06] MEDS: POTASSIUM CHLORIDE 20 MEQ POWDER PACKET GT SCH (09:45)
[2024-12-06 12:00] VITALS: BP 128/80; TEMP 97.8; O2SAT 100
[2024-12-06 16:00] VITALS: BP 136/86; TEMP 97.7; O2SAT 100
== END 2024-12-06 20:37 | DRG 710 ==
LOC: ER 13:00 → ICU 15:59 → TELE-TD 11-29 15:34 → TELE1 11-29 15:43 → TELE-TD 11-29 19:26 → MEDSG1 12-01 09:08 → TELE1 12-01 13:15 → ICU 12-01 20:14 → TELE-TD 12-05 16:20 → TELE1 12-06 13:21
PROVIDERS: ADMIT Internal Medicine; ATTEND Internal Medicine
PROC: 5A1955Z Respiratory Ventilation, Greater than 96 Consecutive Hours (ICD-10-PCS; principal; 2024-11-27)
PROC: 30233N1 Transfusion of Nonautologous Red Blood Cells into Peripheral Vein, Percutaneous Approach (ICD-10-PCS; 2024-11-27)
PROC: 02HV33Z Insertion of Infusion Device into Superior Vena Cava, Percutaneous Approach (ICD-10-PCS; 2024-11-27)
PROC: B548ZZA Ultrasonography of Superior Vena Cava, Guidance (ICD-10-PCS; 2024-11-27)
PROC: 0KBF0ZZ Excision of Right Trunk Muscle, Open Approach (ICD-10-PCS; 2024-12-04)
PROC: 0NB00ZZ Excision of Skull, Open Approach (ICD-10-PCS; 2024-12-04)
PROC: 0KBN0ZZ Excision of Right Hip Muscle, Open Approach (ICD-10-PCS; 2024-12-04)
DX: A41.9 Sepsis, unspecified organism (principal); J96.21 Acute and chronic respiratory failure with hypoxia; R65.21 Severe sepsis with septic shock; G93.41 Metabolic encephalopathy; L89.134 Pressure ulcer of right lower back, stage 4; R64 Cachexia; L89.154 Pressure ulcer of sacral region, stage 4; L89.314 Pressure ulcer of right buttock, stage 4; E43 Unspecified severe protein-calorie malnutrition; E87.0 Hyperosmolality and hypernatremia; L89.226 Pressure-induced deep tissue damage of left hip; E86.0 Dehydration; Z99.11 Dependence on respirator [ventilator] status; Z93.0 Tracheostomy status; N39.0 Urinary tract infection, site not specified; I10 Essential (primary) hypertension; B96.89 Other specified bacterial agents as the cause of diseases classified elsewhere; Z93.1 Gastrostomy status; R13.10 Dysphagia, unspecified; E86.1 Hypovolemia; D63.8 Anemia in other chronic diseases classified elsewhere; K92.2 Gastrointestinal hemorrhage, unspecified; M62.40 Contracture of muscle, unspecified site; E87.20 Acidosis, unspecified; E03.9 Hypothyroidism, unspecified; E88.09 Other disorders of plasma-protein metabolism, not elsewhere classified; I48.91 Unspecified atrial fibrillation; S20.422A Blister (nonthermal) of left back wall of thorax, initial encounter; S20.421A Blister (nonthermal) of right back wall of thorax, initial encounter; X58.XXXA Exposure to other specified factors, initial encounter; Y92.9 Unspecified place or not applicable; I12.9 Hypertensive chronic kidney disease with stage 1 through stage 4 chronic kidney disease, or unspecified chronic kidney disease; N17.9 Acute kidney failure, unspecified; N18.9 Chronic kidney disease, unspecified; B96.4 Proteus (mirabilis) (morganii) as the cause of diseases classified elsewhere; E87.6 Hypokalemia; I70.0 Atherosclerosis of aorta; I70.202 Unspecified atherosclerosis of native arteries of extremities, left leg; I70.208 Unspecified atherosclerosis of native arteries of extremities, other extremity; N40.0 Benign prostatic hyperplasia without lower urinary tract symptoms; Z51.5 Encounter for palliative care; Z86.73 Personal history of transient ischemic attack (TIA), and cerebral infarction without residual deficits; E86.9 Volume depletion, unspecified; Z16.12 Extended spectrum beta lactamase (ESBL) resistance
CPT/HCPCS: 31720; 36415; 71045-TC; 72220-TC; 80048-TC; 80076-TC; 80202-TC; 81001; 82533; 83605-TC; 83735-TC; 83935-TC; 84100-TC; 84300-TC; 84443-TC; 84550-TC; 85025-TC; 85652-TC; 85730-TC; 86140-TC; 86850-TC; 87040-TC; 87070-TC; 87081-TC; 87086-TC; 87186-TC; 87205-TC; 93307-TC; 94003-TC; 94760-TC; 94762-TC; 94799-TC; A4223; A4623; A6213; A6403; A7526; G0378; J0282; J0692; J1160; J1720; J2185; J2543; J3010; J3370; J3371; J3480; J3490; J7030; J7040; J7050; J7060; P9016

== ENCOUNTER 2025-01-06 12:00 | Inpatient (IN) | payer MEDICAID ==
[~2025-01-06] VITALS: Ht 160 cm; Wt 48.1 kg
[~2025-01-06 12:00] MED LIST changes: -AMOX1TAB16 PO; -COLLAGEN POWDER TP; -CRAN3875 GT; -FERR220S2 GT; -LEVO125T8 GT; +LEVO75TA7 GT; -ONDA4TAB5 GT; -POVI3780 TP; +UREA GT; +[UNRECOGNIZED DRUG - OTHER] GT
[2025-01-06] MEDS ORDERED: PANT40SU2 GT (12:41)
[2025-01-06] MEDS ORDERED: MULT9LIQ6 GT (12:41)
[2025-01-06] MEDS ORDERED: ALBU2.5V11 NEB (12:41)
[2025-01-06] MEDS ORDERED: [UNRECOGNIZED DRUG - CODE] GT (12:41)
[2025-01-06] MEDS ORDERED: ZINC50TA69 GT (12:41)
[2025-01-06] MEDS ORDERED: ASCO500L2 GT (12:41)
[2025-01-06] MEDS ORDERED: CRAN3875 GT (12:41)
[2025-01-06] MEDS ORDERED: ONDA-97 GT (12:41)
[2025-01-06] MEDS ORDERED: BACL5TAB GT (12:41)
[2025-01-06 12:45] LABS: PLATELET COUNT (AUTO) 668 K/uL (150-450); RED BLOOD CELL COUNT(AUTO) 3.59 MIL/uL (4.5-6.0); RED CELL DISTRIBUTION WIDTH 20.1 % (11.5-15.0); WHITE BLOOD COUNT (AUTO) 15.5 K/uL (4.3-11.0)
[2025-01-06 13:02] LABS: APPEARANCE,URINE CLEAR (CLEAR); BLOOD, URINE TRACE-INTA Ery/uL (NEGATIVE); LEUKOCYTE ESTERASE ,URINE 2+ (NEGATIVE); NITRITE, URINE NEGATIVE (NEGATIVE); UGLUCOSE NEGATIVE (NEGATIVE)
[2025-01-06 13:02] LABS: CALCIUM, SERUM 8.8 mg/dL (8.5-10.1); CREATININE 0.3 mg/dL (0.6-1.3); SODIUM SERUM 130.0 mmol/L (136-145); UREA NITROGEN, BLOOD 22.0 mg/dL (7-18)
[2025-01-06 13:08] LABS: ASPARTATE AMINOTRANSFERASE 21.0 U/L (15-37); TOTAL PROTEIN, SERUM 7.4 g/dL (6.4-8.2)
[2025-01-06 13:18] LABS: LACTIC ACID 1.3 mmol/L (0.4-2.0)
[2025-01-06 13:28] LABS: ADD URINE CULTURE YES
[2025-01-06 13:29] LABS: CALCIUM OXALATE CRYSTALS,UR Moderate /HPF (None Seen); SQUAMOUS EPITHELIAL CELL,UR 0-2 /HPF (None Seen); YEAST,URINE Moderate /HPF (None Seen)
[2025-01-06] MEDS ORDERED: CEFTRIAXONE 1GM BAG (ER ONLY) 50 ML IV ONE (13:36)
[2025-01-06] MEDS: CEFTRIAXONE 1GM BAG (ER ONLY) 1 GM/50 ML PIGGYBACK IV ONE (13:41)
[2025-01-06] MEDS: IV NS 0.9% 500 ML BAG IV ONE (14:30)
[2025-01-06] MEDS ORDERED: BISACODYL SUPP (10 MG) 10 MG/SUPP.RECT SUPP.RECT RC PRN (16:00)
[2025-01-06] MEDS ORDERED: ONDANSETRON HCL/PF 4 MG/2 ML VIAL IVP PRN (16:00)
[2025-01-06] MEDS ORDERED: ALBUTEROL FS 2.5 MG/3 ML VIAL.NEB NEB PRN (16:00)
[2025-01-06 17:00] VITALS: BP 103/68; TEMP 98.1; O2SAT 100
[2025-01-06] MEDS: SODIUM CHLORIDE 1000 MG TABLET GT SCH (18:32)
[2025-01-06] MEDS: BACLOFEN (10 MG) 10 MG TABLET GT SCH (18:32)
[2025-01-06] MEDS: SENNOSIDES/DOCUSATE SODIUM 1 TAB TABLET GT SCH (18:33)
[2025-01-06] MEDS: VITAL AF 1.2 1,000 ML BOTTLE GT PRN (18:44)
[2025-01-06] MEDS: METOPROLOL TARTRATE 25 MG TABLET GT SCH (20:48)
[2025-01-06] MEDS: CHLORHEXIDINE GLUCONATE 15 ML UDC MM SCH (20:48)
[2025-01-07] VITALS: BP 95/63; TEMP 97.5; O2SAT 100
[2025-01-07 05:51] VITALS: BP 119/74; TEMP 97.2; O2SAT 100
[2025-01-07 06:41] LABS: PLATELET COUNT (AUTO) 659 K/uL (150-450); RED BLOOD CELL COUNT(AUTO) 3.29 MIL/uL (4.5-6.0); RED CELL DISTRIBUTION WIDTH 20.1 % (11.5-15.0); WHITE BLOOD COUNT (AUTO) 12.8 K/uL (4.3-11.0)
[2025-01-07 07:17] LABS: CALCIUM, SERUM 8.9 mg/dL (8.5-10.1); CREATININE 0.5 mg/dL (0.6-1.3); PHOSPHORUS 3.9 mg/dL (2.5-4.9); SODIUM SERUM 133.0 mmol/L (136-145); UREA NITROGEN, BLOOD 18.0 mg/dL (7-18)
[2025-01-07 08:00] VITALS: BP 119/72; TEMP 98.6; O2SAT 99
[2025-01-07] MEDS: ASCORBIC ACID 500 MG TABLET GT SCH (08:10)
[2025-01-07] MEDS: TAMSULOSIN 0.4 MG CAP.SR.24H GT SCH (08:10)
[2025-01-07] MEDS: PANTOPRAZOLE 40 MG/PACK PACK GT SCH (08:10)
[2025-01-07] MEDS: ZINC SULFATE 220 MG CAPSULE GT SCH (08:11)
[2025-01-07] MEDS: RIVAROXABAN 10 MG TABLET GT SCH (08:11)
[2025-01-07] MEDS: LEVOTHYROXINE SODIUM 75 MCG TABLET GT SCH (08:11)
[2025-01-07] MEDS: THERAHONEY GEL 1.5 OZ TUBE TP SCH ×3 (08:12→12:48)
[2025-01-07] MEDS: DAKINS QUARTER STRENGTH (0.125%) 480 ML BOTTLE TOP SCH (10:55)
[2025-01-07 12:00] VITALS: BP 110/75; TEMP 98.7; O2SAT 99
[2025-01-07] MEDS: CEFTRIAXONE 1 G in IV D5W 50 ML IV SCH (14:34)
[2025-01-07 16:00] VITALS: BP 110/74; TEMP 98.3; O2SAT 99
[2025-01-07] MEDS: ACETAMINOPHEN 650 MG/20.3 ML UDC GT PRN (16:39)
[2025-01-07] MEDS: METOPROLOL TARTRATE INJ 5 MG/5 ML AMPUL IV ONE (18:39)
[2025-01-08 07:56] LABS: PLATELET COUNT (AUTO) 599 K/uL (150-450); RED BLOOD CELL COUNT(AUTO) 3.66 MIL/uL (4.5-6.0); RED CELL DISTRIBUTION WIDTH 20.5 % (11.5-15.0); WHITE BLOOD COUNT (AUTO) 15.2 K/uL (4.3-11.0)
[2025-01-08 08:00] VITALS: BP 112/48; TEMP 97.7; O2SAT 99
[2025-01-08 08:16] LABS: CALCIUM, SERUM 9.1 mg/dL (8.5-10.1); CREATININE 0.6 mg/dL (0.6-1.3); PHOSPHORUS 4.1 mg/dL (2.5-4.9); SODIUM SERUM 136.0 mmol/L (136-145); UREA NITROGEN, BLOOD 31.0 mg/dL (7-18)
[2025-01-08 09:13] LABS: EOSINOPHILS % (MANUAL) 2 % (0-4); LYMPHOCYTES % (MANUAL) 10 % (16-48); MONOCYTES % (MANUAL) 3 % (0-11.0); PLATELET ESTIMATE INCREASED
[2025-01-08 09:14] LABS: NEUTROPHILS % (MANUAL) 85 (42-76)
[2025-01-08] MEDS: POTASSIUM CHLORIDE 20 MEQ POWDER PACKET NG SCH (10:40)
[2025-01-08] MEDS: CEFEPIME 2 GM in IV D5W 100 ML IV SCH (11:07)
[2025-01-08 12:00] VITALS: BP 106/70; TEMP 97.5; O2SAT 98
[2025-01-08 16:00] VITALS: BP 108/56; TEMP 98; O2SAT 98
[2025-01-08 20:00] VITALS: BP 130/73; TEMP 98.2; O2SAT 99
[2025-01-09] VITALS: BP 99/58; TEMP 97.9; O2SAT 96
[2025-01-09 04:00] VITALS: BP 102/54; TEMP 97.9; O2SAT 95
[2025-01-09 08:00] VITALS: BP 85/66; TEMP 97.2; O2SAT 95
[2025-01-09 10:07] LABS: PLATELET COUNT (AUTO) 687 K/uL (150-450); RED BLOOD CELL COUNT(AUTO) 3.59 MIL/uL (4.5-6.0); RED CELL DISTRIBUTION WIDTH 20.6 % (11.5-15.0); WHITE BLOOD COUNT (AUTO) 19.0 K/uL (4.3-11.0)
[2025-01-09 10:13] LABS: CALCIUM, SERUM 8.9 mg/dL (8.5-10.1); CREATININE 0.6 mg/dL (0.6-1.3); SODIUM SERUM 138.0 mmol/L (136-145); UREA NITROGEN, BLOOD 36.0 mg/dL (7-18)
[2025-01-09 12:00] VITALS: BP 88/57; TEMP 98; O2SAT 95
[2025-01-09 16:00] VITALS: BP 106/65; TEMP 97.5; O2SAT 95
[2025-01-09 20:00] VITALS: BP 118/73; TEMP 98.5; O2SAT 99
[2025-01-09] MEDS ORDERED: DOSING PER PHARMACY-VANCOMYCIN IV XX PRN (22:30)
[2025-01-09] MEDS ORDERED: VANCOMYCIN 1 GM /D5W 250 ML PB IV ONE (22:30)
[2025-01-09] MEDS: VANCOMYCIN 1 GM in IV D5W 250ml IV ONE (22:33)
[2025-01-09] MEDS ORDERED: MEROPENEM 1 G VIAL IV ONE (23:04)
[2025-01-09] MEDS: MEROPENEM 1 G in IV NS 0.9% 100 ML IV ONE (23:49)
[2025-01-10] VITALS: BP 99/70; TEMP 98.9; O2SAT 100
[2025-01-10 04:00] VITALS: BP 97/66; TEMP 98.6; O2SAT 96
[2025-01-10 08:00] VITALS: BP 98/68; TEMP 98.4; O2SAT 98
[2025-01-10 08:22] LABS: CALCIUM, SERUM 8.9 mg/dL (8.5-10.1); CREATININE 0.5 mg/dL (0.6-1.3); PHOSPHORUS 3.0 mg/dL (2.5-4.9); SODIUM SERUM 139.0 mmol/L (136-145); UREA NITROGEN, BLOOD 35.0 mg/dL (7-18)
[2025-01-10 09:04] LABS: PLATELET COUNT (AUTO) 625 K/uL (150-450); RED BLOOD CELL COUNT(AUTO) 3.41 MIL/uL (4.5-6.0); RED CELL DISTRIBUTION WIDTH 20.7 % (11.5-15.0); WHITE BLOOD COUNT (AUTO) 22.9 K/uL (4.3-11.0)
[2025-01-10] MEDS: VANCOMYCIN 750 MG in IV D5W 250 ML IV SCH (09:21)
[2025-01-10] MEDS: Z GUARD REMEDY 4 OZ OINT TP PRN (09:22)
[2025-01-10] MEDS: MEROPENEM 1 G in IV NS 0.9% 100 ML IV SCH (10:19)
[2025-01-10] MEDS: IV NS 0.9% 250 ML IV ONE (11:51)
[2025-01-10 12:00] VITALS: BP 97/58; TEMP 98.4; O2SAT 100
[2025-01-10 16:00] VITALS: BP 91/60; TEMP 97.9; O2SAT 100
[2025-01-10 20:00] VITALS: BP 116/84; TEMP 98.1; O2SAT 100
[2025-01-11] VITALS: BP 127/80; TEMP 98.3; O2SAT 100
[2025-01-11 04:00] VITALS: BP 117/67; TEMP 98; O2SAT 100
[2025-01-11 07:41] LABS: PLATELET COUNT (AUTO) 513 K/uL (150-450); RED BLOOD CELL COUNT(AUTO) 3.03 MIL/uL (4.5-6.0); RED CELL DISTRIBUTION WIDTH 21.0 % (11.5-15.0); WHITE BLOOD COUNT (AUTO) 23.9 K/uL (4.3-11.0)
[2025-01-11 08:00] VITALS: BP 99/61; TEMP 98.8; O2SAT 100
[2025-01-11 08:05] LABS: CALCIUM, SERUM 8.4 mg/dL (8.5-10.1); CREATININE 0.4 mg/dL (0.6-1.3); SODIUM SERUM 142.0 mmol/L (136-145); UREA NITROGEN, BLOOD 30.0 mg/dL (7-18)
[2025-01-11] MEDS: POTASSIUM CHLORIDE 20 MEQ POWDER PACKET NG SCH (10:56)
[2025-01-11 11:32] LABS: EOSINOPHILS % (MANUAL) 2 % (0-4); LYMPHOCYTES % (MANUAL) 1 % (16-48); MONOCYTES % (MANUAL) 5 % (0-11.0); NEUTROPHILS % (MANUAL) 92 (42-76); PLATELET ESTIMATE INCREASED
[2025-01-11 12:00] VITALS: BP 97/65; TEMP 98.8; O2SAT 100
== END 2025-01-11 17:33 | DRG 710 ==
LOC: ER 12:10 → TELE1 15:32
PROVIDERS: ADMIT Nurse Practitioner Family
PROC: 5A1955Z Respiratory Ventilation, Greater than 96 Consecutive Hours (ICD-10-PCS; principal; 2025-01-06)
PROC: 0KBF0ZZ Excision of Right Trunk Muscle, Open Approach (ICD-10-PCS; 2025-01-08)
PROC: 0NB00ZZ Excision of Skull, Open Approach (ICD-10-PCS; 2025-01-08)
PROC: 0KBN0ZZ Excision of Right Hip Muscle, Open Approach (ICD-10-PCS; 2025-01-08)
PROC: 0KBP0ZZ Excision of Left Hip Muscle, Open Approach (ICD-10-PCS; 2025-01-08)
PROC: 0JB90ZZ Excision of Buttock Subcutaneous Tissue and Fascia, Open Approach (ICD-10-PCS; 2025-01-08)
DX: A41.50 Gram-negative sepsis, unspecified (principal); G93.41 Metabolic encephalopathy; L89.134 Pressure ulcer of right lower back, stage 4; L89.154 Pressure ulcer of sacral region, stage 4; E44.0 Moderate protein-calorie malnutrition; R40.3 Persistent vegetative state; L89.214 Pressure ulcer of right hip, stage 4; L89.314 Pressure ulcer of right buttock, stage 4; E87.1 Hypo-osmolality and hyponatremia; D63.8 Anemia in other chronic diseases classified elsewhere; N39.0 Urinary tract infection, site not specified; Z66 Do not resuscitate; Z51.5 Encounter for palliative care; Z86.73 Personal history of transient ischemic attack (TIA), and cerebral infarction without residual deficits; Z93.0 Tracheostomy status; Z93.1 Gastrostomy status; Z99.11 Dependence on respirator [ventilator] status; Z86.718 Personal history of other venous thrombosis and embolism; I10 Essential (primary) hypertension; K21.9 Gastro-esophageal reflux disease without esophagitis; R13.10 Dysphagia, unspecified; Z79.51 Long term (current) use of inhaled steroids; E03.9 Hypothyroidism, unspecified; E86.1 Hypovolemia; I48.91 Unspecified atrial fibrillation; E88.09 Other disorders of plasma-protein metabolism, not elsewhere classified; Z79.890 Hormone replacement therapy; Z79.01 Long term (current) use of anticoagulants; Z79.899 Other long term (current) drug therapy; M62.40 Contracture of muscle, unspecified site; J96.10 Chronic respiratory failure, unspecified whether with hypoxia or hypercapnia; I70.235 Atherosclerosis of native arteries of right leg with ulceration of other part of foot; L97.519 Non-pressure chronic ulcer of other part of right foot with unspecified severity; R62.7 Adult failure to thrive; Z16.24 Resistance to multiple antibiotics; B96.89 Other specified bacterial agents as the cause of diseases classified elsewhere
CPT/HCPCS: 31720; 36415; 71045-TC; 80048-TC; 80076-TC; 80202-TC; 81001; 83605-TC; 83735-TC; 84100-TC; 85025-TC; 85027-TC; 87040-TC; 87070-TC; 87081-TC; 87086-TC; 87186-TC; 87205-TC; 94002-TC; 94003-TC; 94760-TC; 94761-TC; 94762-TC; 94799-TC; 99082-TC; A4223; A4623; A6213; A6253; A6403; A7526; G0378; J0692; J0696; J2185; J3373; J3374; J3490; J7030; J7040; J7050; J7060